=== PATIENT | female | born 1970 | race Caucasian/White ===

== ENCOUNTER → 2017-03-29 | Outpatient (REF) | payer BC ==
[2017-03-29 20:23] LABS: AMORPHOUS SEDIMENT SMALL (NEGATIVE); APPEARANCE, URINE HAZY (CLEAR); BACTERIA, URINE AUTO 2+ (NEGATIVE); BILIRUBIN, URINE AUTO NEGATIVE (NEGATIVE); BLOOD, URINE BLOOD 1+ (NEGATIVE); COLOR, URINE YELLOW (YELLOW); GLUCOSE, URINE (UA) AUTO NEGATIVE (NEGATIVE); KETONE, URINE AUTO NEGATIVE (NEGATIVE); LEUKOCYTE ESTERASE, URINE AUTO NEGATIVE (NEGATIVE); MUCUS, URINE SMALL (NEGATIVE); NITRITE, URINE AUTO NEGATIVE (NEGATIVE); PROTEIN, URINE AUTO NEGATIVE (NEGATIVE); RBC, URINE AUTO 4 /HPF (0-3); SPECIFIC GRAVITY URINE AUTO 1.015 (1.002-1.035); SQUAMOUS EPITHELIAL CELL UR AU 1 /HPF (0-6); UROBILINOGEN, URINE AUTO 0.2 mg/dL (0.0-2.0); WBC, URINE AUTO 9 /HPF (0-3)
== END ==
LOC: M LAB REF 09:47
DX: N39.0 Urinary tract infection, site not specified (principal)
CPT/HCPCS: 81001

== ENCOUNTER 2018-07-09 21:09 | Emergency (ER) | payer BC, OTHER ==
[~2018-07-09] VITALS: Ht 162.6 cm; Wt 79.1 kg
[~2018-07-09 21:09] MED LIST: ALIGN PO; IBUP600T OR; PENTASA PO; VICO5TAB OR
[2018-07-09] MEDS ORDERED: VALA500T5 PO (21:16)
[2018-07-09] MEDS ORDERED: GI COCKTAIL 50ML BTL(HYOSCYAMINE/MAALOX/LIDOCAINE VISCOUS)(1:3:1) PO ONE (21:30)
[2018-07-09 21:56] LABS: BASO % 0.4 % (0.0-1.0); EOS # 0.1 10^3/uL (0.0-0.50); EOS % 0.7 % (0.0-3.0); HEMATOCRIT 41.8 % (36.0-47.0); HEMOGLOBIN 14.1 g/dl (12.0-15.5); LYMPH # 1.1 10^3/uL (1.5-4.5); LYMPH % 12.6 % (24.0-44.0); MEAN CORPUSCULAR HEMOGLOBIN 28.5 pg (27.0-33.0); MEAN CORPUSCULAR HGB CONC 33.7 g/dl (32.0-36.5); MEAN CORPUSCULAR VOLUME 84.4 fl (80.0-96.0); MONO # 0.3 10^3/uL (0.0-0.8); MONO % 3.7 % (0.0-5.0); NEUTROPHILS % 82.2 % (36.0-66.0); PLATELET COUNT, AUTOMATED 259 10^3/uL (150-450); RED BLOOD COUNT 4.95 10^6/uL (4.00-5.40); WHITE BLOOD COUNT 8.6 10^3/uL (4.0-10.0)
[2018-07-09] MEDS ORDERED: KETOROLAC 30 MG/ML VIAL (J1885) IV ONE (22:15)
[2018-07-09 22:24] LABS: ALBUMIN 4.1 GM/DL (3.2-5.2); ALT/SGPT 25 U/L (12-78); AMYLASE 100 U/L (25-115); BILIRUBIN,DIRECT 0.1 MG/DL (0.0-0.2); BILIRUBIN,TOTAL 0.5 MG/DL (0.2-1.0); BLOOD UREA NITROGEN 11 MG/DL (7-18); CALCIUM LEVEL 8.7 MG/DL (8.5-10.1); CARBON DIOXIDE LEVEL 24 MEQ/L (21-32); CHLORIDE LEVEL 108 MEQ/L (98-107); CREATININE FOR GFR 0.91 MG/DL (0.55-1.30); GLOMERULAR FILTRATION RATE > 60.0 (>58); GLUCOSE, FASTING 120 MG/DL (70-100); LIPASE 187 U/L (73-393); POTASSIUM SERUM 4.2 MEQ/L (3.5-5.1); SODIUM LEVEL 139 MEQ/L (136-145); TOTAL PROTEIN 7.4 GM/DL (6.4-8.2)
--- NOTE | 2018-07-09 23:04 | REPVR ---
EXAM: US Abdomen Limited, Right Upper Quadrant EXAM DATE/TIME: 07/09/2018 10:24 PM CLINICAL HISTORY: 47 years old, female; Pain; Abdominal pain; Epigastric; Additional info: Epigastric discomfort TECHNIQUE: Imaging protocol: Real-time ultrasound of the abdomen with image documentation. Examination was focused on the right upper quadrant. COMPARISON: No relevant prior studies available. FINDINGS: Liver: Cyst in the left lobe of the liver measures 1.3 x 1.3 x 1.2 cm. Cyst in the right lobe of the liver measures 5.6 x 5.5 x 4.8 millimeters. Gallbladder: Normal. No gallstones. There is no gallbladder wall thickening. Common bile duct: Common bile duct measures 1.7 mm. Pancreas: Visualized pancreas is unremarkable. Right kidney: Right kidney measures 10.9 x 4.5 x 4.9 cm. IMPRESSION: Hepatic cysts. COMMENT: Consistent with the [employer]'s Incidental Findings Committee Report (J Am Manuelito Radiol 2010): Unless the patient's specific circumstances suggest otherwise, any liver lesion 0.5 cm or less, any cystic kidney lesion less than 1.0 cm, and/or any adrenal lesion 1.0 cm or less not otherwise characterized in this report as possessing suspicious or indeterminate imaging features is/are highly likely to be benign and do not require follow-up imaging or biopsy. Electronically signed by: Luis Mar On 07/09/2018 23:04:18 PM
[2018-07-09] MEDS ORDERED: FAMO40TA3 PO (23:32)
[2018-07-09] MEDS ORDERED: KETO10TAB PO (23:33)
[2018-07-09 23:39] VITALS: BP 149/60
--- NOTE | 2018-07-10 07:49 | REP ---
PA and lateral chest: Comparison is 10/03/2015. The lung reeves are clear. The cardiac size is normal. The stefany, mediastinum, and skeletal structures are unremarkable. Impression: Negative PA and lateral chest. There is no interval change. Electronically Signed by Eliecer Uribe MD 07/10/2018 07:42 A
== END 2018-07-09 23:42 | disposition home or self-care (01) ==
LOC: M ED 21:09
DX: K29.70 Gastritis, unspecified, without bleeding (principal); K76.89 Other specified diseases of liver; Z79.899 Other long term (current) drug therapy; Z88.0 Allergy status to penicillin
CPT/HCPCS: 71046; 76705; 80048; 80076; 82150; 83690; 85025; 96374; 99284; J1885

== ENCOUNTER → 2018-09-08 | Outpatient (REF) | payer BC ==
[~2018-09-08] MED LIST changes: +FAMO40TA3 PO; +KETO10TAB PO; +VALA500T5 PO
[2018-09-08 12:56] LABS: APPEARANCE, URINE HAZY (CLEAR); BACTERIA, URINE AUTO 2+ (NEGATIVE); BILIRUBIN, URINE AUTO NEGATIVE (NEGATIVE); BLOOD, URINE BLOOD 3+ (NEGATIVE); COLOR, URINE YELLOW (YELLOW); GLUCOSE, URINE (UA) AUTO NEGATIVE (NEGATIVE); KETONE, URINE AUTO NEGATIVE (NEGATIVE); LEUKOCYTE ESTERASE, URINE AUTO 2+ (NEGATIVE); MUCUS, URINE SMALL (NEGATIVE); NITRITE, URINE AUTO NEGATIVE (NEGATIVE); PROTEIN, URINE AUTO NEGATIVE (NEGATIVE); RBC, URINE AUTO 45 /HPF (0-3); SPECIFIC GRAVITY URINE AUTO 1.023 (1.002-1.035); SQUAMOUS EPITHELIAL CELL UR AU 4 /HPF (0-6); UROBILINOGEN, URINE AUTO 0.2 mg/dL (0.0-2.0); WBC, URINE AUTO 67 /HPF (0-3)
== END ==
LOC: M LAB REF 12:12
PROVIDERS: ATTEND Physician Assistant Medical
DX: N39.0 Urinary tract infection, site not specified (principal)

== ENCOUNTER → 2018-09-09 | Outpatient (CLI) | payer BC ==
[2018-09-09 07:39] LABS: CHOLESTEROL RISK RATIO 3.42 (<5); THYROID STIMULATING HORMONE 1.53 uIU/ML (0.358-3.740)
== END ==
LOC: M LAB 06:38
PROVIDERS: ATTEND Family Medicine
DX: Z13.220 Encounter for screening for lipoid disorders (principal); K50.90 Crohn's disease, unspecified, without complications; Z68.28 Body mass index [BMI] 28.0-28.9, adult

== ENCOUNTER → 2020-09-13 | Outpatient (REF) | payer BC ==
[2020-09-13 14:58] LABS: APPEARANCE, URINE HAZY (CLEAR); BACTERIA, URINE AUTO 1+ (NEGATIVE); BILIRUBIN, URINE AUTO NEGATIVE (NEGATIVE); BLOOD, URINE BLOOD 3+ (NEGATIVE); COLOR, URINE YELLOW (YELLOW); GLUCOSE, URINE (UA) AUTO NEGATIVE (NEGATIVE); KETONE, URINE AUTO NEGATIVE (NEGATIVE); LEUKOCYTE ESTERASE, URINE AUTO 2+ (NEGATIVE); MUCUS, URINE SMALL (NEGATIVE); NITRITE, URINE AUTO NEGATIVE (NEGATIVE); PROTEIN, URINE AUTO NEGATIVE (NEGATIVE); RBC, URINE AUTO 118 /HPF (0-3); SQUAMOUS EPITHELIAL CELL UR AU 0 /HPF (0-6); UROBILINOGEN, URINE AUTO 0.2 mg/dL (0.0-2.0); WBC, URINE AUTO 64 /HPF (0-3)
== END ==
LOC: M LAB REF 14:06
PROVIDERS: ATTEND Physician Assistant
DX: N39.0 Urinary tract infection, site not specified (principal)

== ENCOUNTER → 2020-11-21 | Outpatient (CLI) | payer BC ==
[2020-11-21 08:26] LABS: HEMATOCRIT 40.2 % (36.0-47.0); HEMOGLOBIN 12.9 g/dl (12.0-15.5); MEAN CORPUSCULAR HEMOGLOBIN 28.4 pg (27.0-33.0); MEAN CORPUSCULAR HGB CONC 32.1 g/dl (32.0-36.5); MEAN CORPUSCULAR VOLUME 88.5 fl (80.0-96.0); PLATELET COUNT, AUTOMATED 177 10^3/uL (150-450); RED BLOOD COUNT 4.54 10^6/uL (4.00-5.40); WHITE BLOOD COUNT 4.9 10^3/uL (4.0-10.0)
[2020-11-21 09:00] LABS: ALT/SGPT 24 U/L (12-78); BILIRUBIN,TOTAL 0.5 MG/DL (0.2-1.0); BLOOD UREA NITROGEN 15 MG/DL (7-18); CALCIUM LEVEL 8.6 MG/DL (8.5-10.1); CARBON DIOXIDE LEVEL 29 MEQ/L (21-32); CHLORIDE LEVEL 110 MEQ/L (98-107); CHOLESTEROL LEVEL 185 MG/DL (<200); CREATININE FOR GFR 0.77 MG/DL (0.55-1.30); GLOMERULAR FILTRATION RATE > 60.0 (>51); GLUCOSE, FASTING 87 MG/DL (70-100); HDL CHOLESTEROL 57 MG/DL (>40); POTASSIUM SERUM 4.2 MEQ/L (3.5-5.1); SODIUM LEVEL 141 MEQ/L (136-145); TRIGLYCERIDES LEVEL 115 MG/DL (<150)
[2020-11-21 09:01] LABS: ALBUMIN 3.3 GM/DL (3.2-5.2); CHOLESTEROL RISK RATIO 3.245 (<5); LDL CHOLESTEROL 105 MG/DL (<100); NON-HDL-C 128 MG/DL; TOTAL PROTEIN 6.4 GM/DL (6.4-8.2)
== END ==
LOC: M LAB 07:44
PROVIDERS: ATTEND Family Medicine
DX: Z13.220 Encounter for screening for lipoid disorders (principal); E66.3 Overweight; Z13.1 Encounter for screening for diabetes mellitus; K50.90 Crohn's disease, unspecified, without complications

== ENCOUNTER → 2021-01-24 | Outpatient (REF) | LOC: M EMP 12:00 | PROVIDERS: ATTEND Family Medicine | DX: Z20.822 Contact with and (suspected) exposure to COVID-19 (principal) ==

== ENCOUNTER → 2021-02-13 | Outpatient (CLI) | payer BC ==
--- NOTE | 2021-02-13 09:11 | REP ---
INDICATION: HEPATIC CYST COMPARISON: None. TECHNIQUE: Real time rodriguez scale ultrasound examination using curved array transducer. FINDINGS: Liver is normal in contour, size, and echogenicity and includes 1.4 cm and 0.7 cm simple benign appearing hepatic cysts in the right lobe. No significant focal hepatic lesions identified. Pancreas is normal. The gallbladder is normal and without gallstones, wall thickening, or pericholecystic fluid. No biliary ductal dilatation is appreciated and the common bile duct measures 2.0 mm diameter. Right kidney is normal in reniform shape without hydronephrosis and measures 11.0 x 4.2 x 5.3 cm. No ascites in the visualized right upper quadrant. IMPRESSION: Benign hepatic cysts. <Electronically signed by Farhad Marie > 02/13/21 [id number]
--- NOTE | 2021-02-13 12:59 | REPMRS ---
Patient History The patient states she had a clinical breast exam in December 2020. Family history of unknown cancer in paternal grandmother. Took hormonal contraceptives for 20 years. Tomosynthesis is performed. Volpara breast density is c. Tyrer-zick lifetime risk of breast cancer 10.2%. Pfizer vaccine 03/29/20, 04/19/20 unsure of what arms. Booster 01/11/21 left arm. Pt denied . Patient states no breast complaints today. Patient has signed MRS History Sheet. Digital Woman Screen Mammo: February 13, 2021 - Exam #: [id number] Bilateral CC and MLO view(s) were taken. Technologist: Funmilayo Mcgill, RT No prior studies available for comparison. FINDINGS: The breast tissue is extremely dense which could obscure a lesion on mammography. There is dense fibroglandular tissue which is fairly symmetric. There is no dominant mass, areas of architectural distortion, or clustered microcalcification typical of malignancy. Assessment: BI-RADS/ACR category 1 mammogram. Negative Mammogram. Recommendation Routine screening mammogram in 1 year (for women over age 40). This mammogram was interpreted with the aid of an FDA-approved computer-aided dectection system. Electronically Signed By: Eliecer Rodriguez MD 02/13/21 [id number]
== END ==
LOC: M WHC 08:02
PROVIDERS: ATTEND Family Medicine
DX: Z12.31 Encounter for screening mammogram for malignant neoplasm of breast (principal); K76.89 Other specified diseases of liver; Z92.0 Personal history of contraception

== ENCOUNTER → 2021-04-28 | Outpatient (REF) | LOC: M LABSMTC 09:02 | PROVIDERS: ATTEND Pediatrics | DX: Z11.52 Encounter for screening for COVID-19 (principal) ==

== ENCOUNTER → 2022-02-20 | Outpatient (REF) | payer BC | LOC: M LAB REF 13:35 | PROVIDERS: ATTEND Internal Medicine | DX: K50.919 Crohn's disease, unspecified, with unspecified complications (principal) ==

== ENCOUNTER → 2022-03-26 | Outpatient (REF) | LOC: M LABSMTC 10:29 | PROVIDERS: ATTEND Family Medicine | DX: Z11.52 Encounter for screening for COVID-19 (principal) ==

== ENCOUNTER 2023-01-16 09:49 | Day surgery (SDC) | payer BC ==
[~2023-01-16] VITALS: Ht 162.6 cm; Wt 75.0 kg
[~2023-01-16 09:49] MED LIST changes: +NS 1,000 ML IV ONE; +PHEN30CA21 PO; +PROB250C PO
[2023-01-16] MEDS ORDERED: LIDOCAINE 2% 100MG/5ML SDV (FOR ANES.) As Ordered ONE (11:01)
[2023-01-16] MEDS ORDERED: propofoL 200 MG/20 ML VIAL As Ordered ONE ×3 (11:01→11:43)
[2023-01-16 11:50] VITALS: TEMP 97.5
[2023-01-16 12:10] VITALS: BP 151/76; O2SAT 99
== END 2023-01-16 12:19 | disposition home or self-care (01) ==
LOC: M OPP 09:49
PROVIDERS: ATTEND Internal Medicine Gastroenterology
DX: Z12.11 Encounter for screening for malignant neoplasm of colon (principal); K64.0 First degree hemorrhoids; K56.699 Other intestinal obstruction unspecified as to partial versus complete obstruction; Z88.0 Allergy status to penicillin; Z79.899 Other long term (current) drug therapy

== ENCOUNTER → 2024-01-01 | Outpatient (REF) | payer BC ==
[~2024-01-01] MED LIST changes: -NS 1,000 ML IV ONE
[2024-01-01 17:20] LABS: PERCENT SATURATION 20.3 % (13.2-45.0)
[2024-01-01 17:24] LABS: FERRITIN 77.4 NG/ML (7.3-270.7)
== END ==
LOC: M LAB REF 16:22
PROVIDERS: ATTEND Internal Medicine
DX: R10.9 Unspecified abdominal pain (principal)

== ENCOUNTER 2024-10-02 18:26 | Emergency (ER) | payer BC ==
[~2024-10-02] VITALS: Ht 162.6 cm; Wt 72.3 kg
[2024-10-02 19:51] LABS: BASO # 0.0 10^3/uL (0.0-0.2); BASO % 0.5 % (0.0-1.0); EOS # 0.1 10^3/uL (0.0-0.5); EOS % 0.7 % (0.0-3.0); LYMPH # 1.4 10^3/uL (1.5-5.0); LYMPH % 16.0 % (24.0-44.0); MONO # 0.5 10^3/uL (0.0-0.8); MONO % 5.8 % (2.0-8.0); NEUTROPHILS # 6.8 10^3/uL (1.5-8.5); NEUTROPHILS % 76.8 % (36.0-66.0); PLATELET COUNT, AUTOMATED 211 10^3/uL (150-450)
[2024-10-02] MEDS: PANTOPRAZOLE 40MG VIAL IV ONE (19:54)
[2024-10-02] MEDS: KETOROLAC 30 MG/ML 1 ML VIAL IV ONE (19:54)
[2024-10-02 20:19] LABS: CK-MB VALUE MASS 1.6 NG/ML (<3.6)
[2024-10-02 20:21] LABS: ALT/SGPT 30 U/L (7.0-40); AST/SGOT 25 U/L (<34); CALCIUM LEVEL 9.5 MG/DL (8.5-10.1); CARBON DIOXIDE LEVEL 28 MMOL/L (20-31); CHLORIDE LEVEL 106 MMOL/L (98-107); CPK CREATINE PHOSPHOKINASE 58 U/L (34-145); CREATININE FOR GFR 0.92 MG/DL (0.55-1.30); GLOMERULAR FILTRATION RATE 74.5 (>51); MB/CK RELATIVE INDEX 2.75 (< OR =4); POTASSIUM SERUM 4.6 MMOL/L (3.5-5.1); SODIUM LEVEL 146 MMOL/L (136-145)
[2024-10-02] MEDS ORDERED: ISOVUE-370 76% 100 ML VIAL As Ordered ONE (20:58)
[2024-10-02 21:35] LABS: CK-MB VALUE MASS 1.7 NG/ML (<3.6)
[2024-10-02 21:45] LABS: CPK CREATINE PHOSPHOKINASE 55 U/L (34-145); MB/CK RELATIVE INDEX 3.09 (< OR =4)
[2024-10-02 23:00] VITALS: BP 132/61
[2024-10-02 23:15] VITALS: O2SAT 98
[2024-10-02] MEDS: predniSONE 20 MG TAB PO ONE (23:15)
[2024-10-02] MEDS ORDERED: PRED20TA PO (23:16)
[2024-10-02 23:30] VITALS: TEMP 97.8
== END 2024-10-02 23:31 | disposition home or self-care (01) ==
LOC: M ED 18:26
DX: K30 Functional dyspepsia (principal); K56.609 Unspecified intestinal obstruction, unspecified as to partial versus complete obstruction; R94.31 Abnormal electrocardiogram [ECG] [EKG]; F10.10 Alcohol abuse, uncomplicated; Z88.0 Allergy status to penicillin; Z79.52 Long term (current) use of systemic steroids; Z79.2 Long term (current) use of antibiotics; Z79.899 Other long term (current) drug therapy
CPT/HCPCS: 74177; 80047; 80048; 80076; 82550; 82553; 83605; 83690; 84484; 85025; 93005; 93041; 96374; 99284; J1885; J2470; J7512; Q9967

== ENCOUNTER → 2024-10-13 | Outpatient (CLI) | payer BC ==
[~2024-10-13] MED LIST changes: +E-Z-PAQUE 96% w/w SUSP 176 GM BTL As Ordered ONE; +PRED20TA PO
== END ==
LOC: M RAD 08:33
PROVIDERS: ATTEND Internal Medicine Gastroenterology
DX: R19.4 Change in bowel habit (principal)

== ENCOUNTER → 2024-11-02 | Outpatient (CLI) | payer BC ==
[~2024-11-02] MED LIST changes: -E-Z-PAQUE 96% w/w SUSP 176 GM BTL As Ordered ONE
[2024-11-02 12:52] LABS: PLATELET COUNT, AUTOMATED 260 10^3/uL (150-450)
[2024-11-02 13:01] LABS: ERYTHROCYTE SEDIMENTATION RATE 32 mm/hr (0-30)
[2024-11-02 13:26] LABS: C REACTIVE PROTEIN QUANTITATIV 2.19 MG/DL (<1.0)
[2024-11-02 13:27] LABS: ALT/SGPT 74 U/L (7.0-40); AST/SGOT 49 U/L (<34); CALCIUM LEVEL 9.4 MG/DL (8.5-10.1); CARBON DIOXIDE LEVEL 30 MMOL/L (20-31); CHLORIDE LEVEL 105 MMOL/L (98-107); CREATININE FOR GFR 0.73 MG/DL (0.55-1.30); GLOMERULAR FILTRATION RATE > 90.0 (>51); POTASSIUM SERUM 4.3 MMOL/L (3.5-5.1); SODIUM LEVEL 145 MMOL/L (136-145)
== END ==
LOC: M LAB 11:53
PROVIDERS: ATTEND Internal Medicine Gastroenterology
DX: R19.4 Change in bowel habit (principal); E55.9 Vitamin D deficiency, unspecified; R19.7 Diarrhea, unspecified

== ENCOUNTER → 2024-11-19 | Outpatient (CLI) | payer BC | LOC: M LAB 07:57 | PROVIDERS: ATTEND Internal Medicine Gastroenterology | DX: R10.31 Right lower quadrant pain (principal); K44.9 Diaphragmatic hernia without obstruction or gangrene ==

== ENCOUNTER → 2024-12-03 | Outpatient (CLI) | payer BC | LOC: M LAB 07:50 | PROVIDERS: ATTEND Internal Medicine Gastroenterology | DX: K50.00 Crohn's disease of small intestine without complications (principal) ==

== ENCOUNTER → 2025-02-05 | Outpatient (CLI) | payer BC | LOC: M RAD 08:17 | PROVIDERS: ATTEND Internal Medicine | DX: M54.2 Cervicalgia (principal); M25.512 Pain in left shoulder; M47.812 Spondylosis without myelopathy or radiculopathy, cervical region; R10.31 Right lower quadrant pain; K44.9 Diaphragmatic hernia without obstruction or gangrene; K56.1 Intussusception; K59.00 Constipation, unspecified ==

== ENCOUNTER → 2025-02-05 | Outpatient (CLI) | payer BC ==
[2025-02-05 09:23] LABS: PLATELET COUNT, AUTOMATED 203 10^3/uL (150-450)
[2025-02-05 09:37] LABS: ALT/SGPT 27.0 U/L (7.0-40); AST/SGOT 23.0 U/L (<34)
== END ==
LOC: M LAB 08:19
PROVIDERS: ATTEND Internal Medicine Gastroenterology
DX: R10.31 Right lower quadrant pain (principal); K44.9 Diaphragmatic hernia without obstruction or gangrene; K56.1 Intussusception; K59.00 Constipation, unspecified

== ENCOUNTER → 2025-03-15 | Outpatient (CLI) | payer BC | LOC: M PLAIMG 09:33 | PROVIDERS: ATTEND Internal Medicine | DX: M54.2 Cervicalgia (principal) ==